=== PATIENT | female | born 1995 | race Two or more races ===

== ENCOUNTER 2024-01-06 06:06 | Emergency (ER) | payer MEDICAID, SELFPAY ==
[2024-01-06 06:19] VITALS: BP 140/98; PULSE 98; RESP 20; TEMP 36.7; O2SAT 96
--- NOTE | 2024-01-06 06:28 | EDNOTE_ITS ---
ED Allergic Reaction RME/HPI General Chief complaint: Allergic Reaction Stated complaint: Breaking out in hives-Generalized body Time Seen by Provider: 01/06/24 06:15 Arrival date/time: 01/06/24 06:06 28-year-old female presents emergency department today complains of itchy rash ongoing since she woke up this morning Limitations: no limitations Related Data Previous Rx's ?Medication ?Instructions ?Recorded ranitidine HCl 300 mg tablet 300 mg PO QDAY ##30 07/20/11 (Zantac) diphenhydramine HCl 25 mg capsule 25 mg PO Q8H PRN allergic symptoms 09/04/21 (Benadryl) #30 caps diphenhydramine HCl 25 mg capsule 25 mg PO Q8H PRN allergic symptoms 01/06/24 (Benadryl) #30 caps prednisone 10 mg tablet 30 mg (3 x 10 mg) PO BID 3 days 01/06/24 #18 tabs Allergies Allergy/AdvReac Type Severity Reaction Status Date / Time clindamycin Allergy Hives Verified 12/13/22 11:46 mupirocin Allergy Hives Verified 12/13/22 11:47 Review of Systems Review of Systems Systems Reviewed: All systems reviewed, normal except as documented Constitutional Constitutional: Reports system reviewed and no additional complaints, except as documented, Denies fever(s) and Denies headache(s) Eyes Eyes: Reports system reviewed and no additional complaints, except as documented and Denies blurry vision ENT Ears, Nose, Mouth, and Throat: Reports system reviewed and no additional complaints, except as documented, Denies headache(s), Denies nasal congestion and Denies nasal discharge Cardiovascular Cardiovascular: Reports system reviewed and no additional complaints, except as documented, Denies chest pain and Denies dyspnea Respiratory Respiratory: Reports system reviewed and no additional complaints, except as documented, Denies chest congestion, Denies cough and Denies dyspnea Gastrointestinal Gastrointestinal: Reports system reviewed and no additional complaints, except as documented and Denies abdominal pain Integumentary/Breasts Skin/Breast: Reports system reviewed and no additional complaints, except as documented, Reports pruritus and Reports rash Neurologic Neurologic: Reports system reviewed and no additional complaints, except as documented, Reports as per HPI and Denies headache(s) Past Medical History Past Medical History CARDIAC: Negative Congestive Heart Failure RESPIRATORY: Negative Chronic Obstructive Pulmonary Disease (COPD) GENITOURINARY: Negative Renal Disease ENDOCRINE: Negative Diabetes Mellitus Type 1 or Diabetes Mellitus Type 2 Surgical History SURGICAL: Positive Neurologic Surgery (craniectomy 2016) Social History SMOKING STATUS: Former smoker ED Exam General Limitations: Present no limitations General appearance: Present alert and in no apparent distress Head Head exam: Present atraumatic and normal inspection Eye Eye exam: Present normal appearance, PERRL and EOMI; Absent conjunctival injection ENT ENT exam: Present normal exam, normal oropharynx and mucous membranes moist Neck Neck exam: Present normal inspection, full ROM and trachea midline Chest Chest inspection: Present normal inspection and symmetric chest wall rise; Absent tenderness Respiratory Respiratory exam: Present normal lung sounds bilaterally; Absent respiratory distress Cardiovascular Cardiovascular exam: Present regular rate, normal rhythm and normal heart sounds Abdominal Exam Abdominal exam: Present soft and normal bowel sounds; Absent distention, tenderness, guarding or rebound Extremities Exam Extremities exam: Present normal inspection and full ROM Back Exam Back exam: Present normal inspection and full ROM Neurological Exam Neurological exam: Present alert, oriented X3 and CN II-XII intact Psychiatric Psychiatric exam: Present normal affect and normal mood Skin Skin exam: Present warm, dry and rash Course Quality Measures none Orders Category Date Time Status Dexamethasone Inj [Decadron Inj] Med 01/06/24 06:26 Discontinued 10 mg IM X1 ONE DiphenhydrAMINE [Benadryl] Med 01/06/24 06:26 Discontinued 50 mg PO X1 ONE Vital Signs Vital signs: Vital Signs Temperature 98.0 F 01/06/24 06:19 Pulse Rate 98 01/06/24 06:19 Respiratory Rate 20 01/06/24 06:19 Blood Pressure 140/98 H 01/06/24 06:19 Pulse Oximetry (%) 96 01/06/24 06:19 Oxygen Delivery Method Room Air 01/06/24 06:19 O2 saturation 96% room air within normal limits Allergic Reaction MDM Narrative MDM Narrative:: 28-year-old female presents emergency department today complains of itchy rash ongoing since she woke up this morning Patient reports no fever no nausea no vomiting no difficulty breathing no difficulty swallowing. Patient reports no chance of On exam patient appears well patient does not appear ill or toxic patient is no difficulty breathing no evidence of anaphylaxis patient does have rash Patient was given dexamethasone and Benadryl here patient discharged home with Benadryl and prednisone At the time of discharge patient no distress Patient data External records reviewed:: [facility] previous records Clinical information provided by:: patient Social determinants that could affect healthcare access:: none Patient has the following chronic illnesses:: None How is presenting disease/condition affected by chronic disease/condition?: no chronic disease Evaluation data The following diagnostics were reviewed and interpreted by me:: other (specify) (N/A) Lab and/or radiology exams considered but not ordered:: Consider not ordered Interpretation Summary: N/A Medications / Prescriptions Medications or Prescriptions considered but not ordered:: Given Medication administrations:: Medication Administration History Discontinued Medications Dexamethasone Sodium Phosphate (Dexamethasone Sod Phos Inj 10 Mg/Ml Vial) 10 mg IM X1 ONE Stop: 01/06/24 06:27 Diphenhydramine HCl (Diphenhydramine 25 Mg Capsule) 50 mg PO X1 ONE Stop: 01/06/24 06:27 Given Consultations Consultation(s) initiated? (list below): No Diagnosis Differential Diagnosis allergic reaction: anaphylaxis, allergic reaction, angioedema and contact dermatitis Most likely diagnosis given after review of the tests above:: Allergic reaction Admission Indicated Admission indicated?: not indicated Admission Request Was there a request for admission?: No Disposition Plan Disposition Plan: Discharge Discharge Attestation Discharge Attestation: The patient and all family members were given an opportunity to ask questions and understood the discharge instructions. Discharge instructions specifically effects, indications for sooner follow up or return to the emergency department, and the expected course of current diagnosis. Patient condition: Stable Discharge Plan Plan Patient Disposition: HOME (Self Care) Disposition Comment: Stable Prescriptions/Referrals Prescriptions/Med Rec: New prednisone 10 mg tablet 30 mg PO BID 3 Days Qty: 18 0RF diphenhydramine HCl [Benadryl] 25 mg capsule 25 mg PO Q8H PRN (Reason: allergic symptoms) Qty: 30 0RF No Action ranitidine HCl [Zantac] 300 MG tablet 300 mg PO QDAY Qty: 30 0RF diphenhydramine HCl [Benadryl] 25 mg capsule 25 mg PO Q8H PRN (Reason: allergic symptoms) Qty: 30 0RF Problem List Clinical Impression: Urticaria Patient/Caregiver Discharge Instructions Education Materials: ED Hives (Adult) Additional Instructions: Please follow up with your primary care doctor in the next 24-48hrs for any worsening symptoms return here immediately Print Language: Latvian Stand Alone Forms: [employer] Award Info., Work/School Release, Patient Portal Info Letter PA/SYSTEMS SUPPORT SPECIALIST Supervising Physician PA/SYSTEMS SUPPORT SPECIALIST Supervising Physician: Dr. mendoza
[2024-01-06] MEDS: DEXAMETHASONE SOD PHOS INJ 10 MG/ML VIAL IM (06:34)
[2024-01-06] MEDS: DiphenhydrAMINE 25 MG CAPSULE 50 MG PO (06:34)
== END 2024-01-06 06:53 | disposition home or self-care (01) ==
PROVIDERS: Emergency Provider Emergency Medicine; PCP Family Medicine
DX: L50.0 Allergic urticaria (principal)
CPT/HCPCS: 96372; 99283; J1100; A9270

== ENCOUNTER 2024-01-09 09:59 | Emergency (ER) | payer MEDICAID, SELFPAY ==
[2024-01-09 10:16] VITALS: BP 141/101; PULSE 88; RESP 18; TEMP 37; O2SAT 98; BMI 37.1
--- NOTE | 2024-01-09 10:39 | EDNOTE_ITS ---
ED Allergic Reaction RME/HPI General Chief complaint: Allergic Reaction Stated complaint: HIVES, ITCHING Time Seen by Provider: 01/09/24 10:10 Source: patient Arrival date/time: 01/09/24 09:59 28-year-old female history of allergic reactions presents to the emergency department with ongoing rash. States she was evaluated in the emergency department 3 days ago and was given steroids states she finished her steroids for 3 days and has noticed rash again to bilateral arms. Patient denies any airway involvement, throat closing or wheezing. She does report she wishes to have a steroid shot which has helped her in the past and she did not receive a on her last visit. Limitations: no limitations Related Data Previous Rx's ?Medication ?Instructions ?Recorded ranitidine HCl 300 mg tablet 300 mg PO QDAY ##30 07/20/11 (Zantac) diphenhydramine HCl 25 mg capsule 25 mg PO Q8H PRN allergic symptoms 09/04/21 (Benadryl) #30 caps diphenhydramine HCl 25 mg capsule 25 mg PO Q8H PRN allergic symptoms 01/06/24 (Benadryl) #30 caps Allergies Allergy/AdvReac Type Severity Reaction Status Date / Time clindamycin Allergy Hives Verified 12/13/22 11:46 [email or web address] Allergy Hives Verified 12/13/22 11:47 Review of Systems Review of Systems Systems Reviewed: All systems reviewed, normal except as documented Constitutional Constitutional: Reports system reviewed and no additional complaints, except as documented, Denies fever(s) and Denies headache(s) Eyes Eyes: Reports system reviewed and no additional complaints, except as documented and Denies blurry vision ENT Ears, Nose, Mouth, and Throat: Reports system reviewed and no additional complaints, except as documented, Denies headache(s), Denies nasal congestion and Denies nasal discharge Cardiovascular Cardiovascular: Reports system reviewed and no additional complaints, except as documented, Denies chest pain and Denies dyspnea Respiratory Respiratory: Reports system reviewed and no additional complaints, except as documented, Denies chest congestion, Denies cough and Denies dyspnea Gastrointestinal Gastrointestinal: Reports system reviewed and no additional complaints, except as documented and Denies abdominal pain Integumentary/Breasts Skin/Breast: Reports system reviewed and no additional complaints, except as documented, Reports pruritus and Reports rash Neurologic Neurologic: Reports system reviewed and no additional complaints, except as documented, Reports as per HPI and Denies headache(s) ED Exam General Limitations: Present no limitations General appearance: Present alert and in no apparent distress Head Head exam: Present atraumatic and normal inspection Eye Eye exam: Present normal appearance, PERRL and EOMI; Absent conjunctival injection ENT ENT exam: Present normal exam, normal oropharynx and mucous membranes moist Neck Neck exam: Present normal inspection, full ROM and trachea midline Chest Chest inspection: Present normal inspection and symmetric chest wall rise; Absent tenderness Respiratory Respiratory exam: Present normal lung sounds bilaterally; Absent respiratory distress Cardiovascular Cardiovascular exam: Present regular rate, normal rhythm and normal heart sounds Abdominal Exam Abdominal exam: Present soft and normal bowel sounds; Absent distention, tenderness, guarding or rebound Extremities Exam Extremities exam: Present normal inspection and full ROM Back Exam Back exam: Present normal inspection and full ROM Neurological Exam Neurological exam: Present alert, oriented X3 and CN II-XII intact Psychiatric Psychiatric exam: Present normal affect and normal mood Skin Skin exam: Present warm, dry and rash Course Quality Measures none Orders Category Date Time Status MethylPREDNISolone.* [SoluMEDROL Inj] Med 01/09/24 10:39 Discontinued 125 mg IM X1 ONE Vital Signs Vital signs: Vital Signs Temperature 98.6 F 01/09/24 10:16 Pulse Rate 88 01/09/24 10:16 Respiratory Rate 18 01/09/24 10:16 Blood Pressure 141/101 H 01/09/24 10:16 Pulse Oximetry (%) 98 01/09/24 10:16 Oxygen Delivery Method Room Air 01/09/24 10:16 Allergic Reaction MDM Narrative MDM Narrative:: 28-year-old female presents emergency department today complains of itchy rash ongoing since she woke up this morning Patient reports no fever no nausea no vomiting no difficulty breathing no difficulty swallowing. Patient reports no chance of On exam patient appears well patient does not appear ill or toxic patient is no difficulty breathing no evidence of anaphylaxis patient does have rash Patient was given Solu-Medrol shot 125 here patient discharged home with Benadryl, advised to buy [id number] Zyrtec Follow-up with PCP or manager casino At the time of discharge patient no distress Patient data External records reviewed:: [facility] previous records Clinical information provided by:: patient Social determinants that could affect healthcare access:: none Patient has the following chronic illnesses:: None How is presenting disease/condition affected by chronic disease/condition?: no chronic disease Evaluation data The following diagnostics were reviewed and interpreted by me:: other (specify) (N/A) Lab and/or radiology exams considered but not ordered:: Consider not ordered Interpretation Summary: N/A Medications / Prescriptions Medications or Prescriptions considered but not ordered:: Given Medication administrations:: Medication Administration History Discontinued Medications Methylprednisolone Sodium Succinate (Methylprednisolone Sod Succ 62.5 Mg/Ml 2ml Vial) 125 mg IM X1 ONE Stop: 01/09/24 10:40 Last Admin: 01/09/24 10:49 Dose: 125 mg Documented By: VG Given Consultations Consultation(s) initiated? (list below): No Diagnosis Differential Diagnosis allergic reaction: anaphylaxis, allergic reaction, angioedema and contact dermatitis Most likely diagnosis given after review of the tests above:: Allergic reaction Admission Indicated Admission indicated?: not indicated Admission Request Was there a request for admission?: No Disposition Plan Disposition Plan: Discharge Discharge Attestation Discharge Attestation: The patient and all family members were given an opportunity to ask questions and understood the discharge instructions. Discharge instructions specifically effects, indications for sooner follow up or return to the emergency department, and the expected course of current diagnosis. Patient condition: Stable Discharge Plan Plan Patient Disposition: HOME (Self Care) Patient condition on transfer: Stable Prescriptions/Referrals Prescriptions/Med Rec: No Action ranitidine HCl [Zantac] 300 MG tablet 300 mg PO QDAY Qty: 30 0RF diphenhydramine HCl [Benadryl] 25 mg capsule 25 mg PO Q8H PRN (Reason: allergic symptoms) Qty: 30 0RF diphenhydramine HCl [Benadryl] 25 mg capsule 25 mg PO Q8H PRN (Reason: allergic symptoms) Qty: 30 0RF Referrals: Dominik Haynes MD [Primary Care Provider] - In 1 week Problem List Clinical Impression: Allergic reaction Patient/Caregiver Discharge Instructions Discharge Activity: activity as tolerated Education Materials: ED Medicine Reaction: Allergic Additional Instructions: - Follow-up with your doctor or manager casino for follow-up care. Continue take your allergy medications Zantac and Benadryl as directed. Return to the emergency department with any worsening symptoms or change in condition. Print Language: Sinhala Stand Alone Forms: [employer] Award Info., Work/School Release, Patient Portal Info Letter JERRICA/TRADE MARK ATTORNEY Supervising Physician PA/TRADE MARK ATTORNEY Supervising Physician: Dr Salazar
[2024-01-09] MEDS: MethylPREDNISolone SOD SUCC 62.5 MG/ML 2ML VIAL 125 MG IM (10:49)
== END 2024-01-09 11:48 | disposition home or self-care (01) ==
PROVIDERS: Emergency Provider Emergency Medicine; PCP Family Medicine
DX: R21 Rash and other nonspecific skin eruption (principal)
CPT/HCPCS: 96372; 99283; J2919

== ENCOUNTER 2024-09-25 14:17 | Emergency (ER) | payer MEDICAID, SELFPAY ==
[2024-09-25 14:17] VITALS: BMI 32.3
--- NOTE | 2024-09-25 14:34 | XR_ITS ---
Examination: PA lateral chest 2 views TECHNIQUE: Upright PA lateral chest 2 views Date and time: September 25, 2024 1455 hours INDICATIONS: Patient fell 10 days ago with injury to the right chest, right rib pain. FINDINGS: Normal heart size No pneumothorax. Clavicles ribs appear intact on this chest film IMPRESSION: No pneumothorax pulmonary contusion or hemothorax No acute rib fractures noted
--- NOTE | 2024-09-25 14:36 | PD.EDRME ---
Rapid Medical Screening Exam [facility] Arrival date/time: 09/25/24 14:17 CC: The right sided chest pain shoulder pain upper back pain right upper quadrant abdominal pain HPI onset 10 days ago after jumping off a rock mario and belly flopping in the [facility] patient denies loss of consciousness altered level of consciousness ibuprofen taken regularly without significant relief at this point of time patient states pain has become unbearable and left work to be assessed. Patient is awake alert oriented last menstrual cycle was 1 week ago. Patient denies bloody urination painful urination low back pain lower abdominal pain altered mentation loss of consciousness or altered level of consciousness. Chief Complaint: Abdominal Pain Time Seen by Provider: 09/25/24 14:34
[2024-09-25 15:13] VITALS: BP 141/94; PULSE 90; RESP 18; TEMP 36.6; O2SAT 97
[2024-09-25 15:41] LABS: Collection Type, Urine Clean Catch
[2024-09-25 15:52] LABS: Basophils # (Auto) 0.1 Thou/mm3 (0.0-0.2); Basophils % (Auto) 1 % (0-2.5); Eosinophils # (Auto) 0.1 Thou/mm3 (0.0-0.5); Eosinophils % (Auto) 3 % (0-10); Hematocrit 36.9 % (36.0-46.0); Hemoglobin 12.6 g/dL (12.0-16.0); Immature Granulocytes Auto 0.01 Thou/mm3 (0.00-0.00); Lymphocytes # (Auto) 1.5 Thou/mm3 (1.0-4.8); Lymphocytes % (Auto) 34 % (10-50); Mean Corpuscular HGB Conc 34.1 g/dl (31.0-37.0); Mean Corpuscular Hemoglobin 32.8 pg (25.0-35.0); Mean Corpuscular Volume 96 fL (80-100); Monocytes # (Auto) 0.3 Thou/mm3 (0.0-0.8); Monocytes % (Auto) 7 % (0-12); Neutrophils # (Auto) 2.4 Thou/mm3 (1.8-7.7); Neutrophils % (Auto) 56 % (37-80); Nucleated Red Blood Cell # 0.00 Thou/mm3 (0.00-0.00); Nucleated Red Blood Cell % 0 /100 WBC (0); Platelet Count 223 Thou/mm3 (140-440); RDW Standard Deviation 53.1 fL (36.4-46.3); Red Blood Count 3.84 Miln/mm3 (4.00-5.20); White Blood Count 4.4 Thou/mm3 (3.6-11.0)
[2024-09-25 16:05] LABS: HCG Qualitative,Urine Negative
--- NOTE | 2024-09-25 16:08 | EDNOTE_ITS ---
ED General RME/HPI General Chief complaint: Abdominal Pain Stated complaint: RIGHT FLANK PAIN Time Seen by Provider: 09/25/24 14:34 Arrival date/time: 09/25/24 14:17 CR me below RME / HPI RME / HPI narrative: 09/25/24 14:17 CC: The right sided chest pain shoulder pain upper back pain right upper quadrant abdominal pain HPI onset 10 days ago after jumping off a rock mario and belly flopping in the [facility] patient denies loss of consciousness altered level of consciousness ibuprofen taken regularly without significant relief at this point of time patient states pain has become unbearable and left work to be assessed. Patient is awake alert oriented last menstrual cycle was 1 week ago. Patient denies bloody urination painful urination low back pain lower abdominal pain altered mentation loss of consciousness or altered level of consciousness. Related Data Previous Rx's ?Medication ?Instructions ?Recorded ranitidine HCl 300 mg tablet 300 mg PO QDAY ##30 07/19 (Zantac) diphenhydramine HCl 25 mg capsule 25 mg PO Q8H PRN all ergic symptoms 09/04/21 (Benadryl) #30 caps diphenhydramine HCl 25 mg capsule 25 mg PO Q8H PRN all ergic symptoms 01/06/24 (Benadryl) #30 caps meloxicam 7.5 mg tablet 7.5 mg PO BID #10 tabs 09/25 Allergies Allergy/AdvReac Type Severity Reaction Status Date / Time clindamycin Allergy Hives Verified 09/25/24 14:21 mupirocin Allergy Hives Verified 09/25/24 14:21 Past Medical History Past Medical History CARDIAC: Negative Congestive Heart Failure RESPIRATORY: Negative Chronic Obstructive Pulmonary Disease (COPD) GENITOURINARY: Negative Renal Disease ENDOCRINE: Negative Diabetes Mellitus Type 1 or Diabetes Mellitus Type 2 Surgical History SURGICAL: Positive Neurologic Surgery (craniectomy 2016) Social History SMOKING STATUS: Current every day smoker ED Exam Narrative Physical exam: [General: Obese not in cot no acute distress Head normocephalic HEENT: Within acceptable limits Neck is supple nontender Chest equal chest rise right-sided tenderness to palpation, breath sounds in all reyes. Respiratory: Clear to auscultation no wheezes crackles or rubs CV: Rate rhythm is regular no murmurs rubs or clicks Abdomen is distended secondary to body habitus soft nontender no masses positive bowel sounds all 4 quadrants Back: No CVA tenderness no spinous process tenderness from cervical spine thoracic and lumbar spine Skin: Intact no petechiae rash induration ulceration or crepitus Extremities: Moving all extremity against resistance cap refill less than 2 seconds neurosensory intact Neuro: Awake alert oriented x3 Glascow coma 15 no focal deficits] Course Quality Measures none Orders Category Date Time Status XR chest 2V Stat Exams 09/25/24 14:34 Completed CBC Stat Lab 09/25/24 15:21 Completed CMP [Comprehensive Metabolic Panel] Stat Lab 09/25/24 15:21 Received HCG Qualitative,Urine Stat Lab 09/25/24 15:33 Results Urinalysis Stat Lab 09/25/24 15:33 Results oxyCODONE/APAP 5/325 [Percocet 5/325] Med 09/25/24 14:34 Discontinued 1 tab PO X1 ONE Vital Signs Vital signs: Vital Signs Temperature 97.8 F 09/25/24 15:13 Pulse Rate 90 09/25/24 15:13 Respiratory Rate 18 09/25/24 15:13 Blood Pressure 141/94 H 09/25/24 15:13 Pulse Oximetry (%) 97 09/25/24 15:13 Oxygen Delivery Method Room Air 09/25/24 15:13 Discharge Plan Plan Patient Disposition: HOME (Self Care) Patient condition on transfer: Stable Prescriptions/Referrals Prescriptions/Med Rec: New meloxicam 7.5 mg tablet 7.5 mg PO BID Qty: 10 0RF No Action ranitidine HCl [Zantac] 300 MG tablet 300 mg PO QDAY Qty: 30 0RF diphenhydramine HCl [Benadryl] 25 mg capsule 25 mg PO Q8H PRN (Reason: allergic symptoms) Qty: 30 0RF diphenhydramine HCl [Benadryl] 25 mg capsule 25 mg PO Q8H PRN (Reason: allergic symptoms) Qty: 30 0RF Referrals: No Primary/Family,Physician [Primary Care Provider] - In 1 week Dominik Haynes MD [Physician] - In 1 week Problem List Clinical Impression: Chest wall contusion Patient/Caregiver Discharge Instructions Education Materials: ED Chest Wall Contusion Print Language: Hungarian Stand Alone Forms: [employer] Award Info., Patient Portal Info Letter, Work/School Release PA/[employer] Supervising Physician ROGER Supervising Physician: Robert Rashid ENEstephanie MDM Meds/Rx Considered, not Ordered None Labs/Rad/Tests considered, not Ordered Describe details: CBC shows no leukocytosis anemia thrombocytopenia Urine is negative Imaging Provider imaging interpretation(s): Chest x-ray is negative for any pneumothorax rib fracture or significant altered the patient that requires emergent intervention as interpreted by me read by radiology. Medication Administration(s) Medication Administration History Discontinued Medications Oxycodone/Acetaminophen (Oxycodone/Apap 5/325 Tablet) 1 tab PO X1 ONE Stop: 09/25/24 14:35 Last Admin: 09/25/24 14:40 Dose: 1 tab Documented By: ABBY
[2024-09-25 16:12] LABS: Bilirubin,Urine Negative (Negative); Blood,Urine Negative (Negative); Clarity,Urine Clear (Clear/Hazy); Color,Urine Colorless (Lt Yel-Yel); Glucose, Urine Negative (Negative); Ketones,Urine Negative (Negative); Leukocyte Esterase,Urine Negative (Negative); Nitrite,Urine Negative (Negative); PH,Urine 6.5 (5.0-7.0); Protein,Urine Negative (Neg - Trace); RBC,Urine 2 /hpf (0-3); Specific Gravity,Urine 1.008 (1.001-1.035); Squamous Epithelial Cell,Urine 1 /hpf (0-5); Urobilinogen,Urine Negative mg/dL (0.0-1.0); WBC,Urine < 1 /hpf (0-5)
[2024-09-25 16:56] LABS: Alanine Aminotransferase 16 U/L (10-49); Albumin, Serum 4.5 gm/dL (3.5-5.0); Albumin/Globulin Ratio 1.7 (1.2-2.2); Alkaline Phosphatase 89 U/L (46-116); Anion Gap 13 (7-16); Aspartate Amino Transferase 37 U/L (0-34); BUN/Creatinine Ratio 11 Ratio (12-20); Bilirubin,Total 0.5 mg/dL (0.3-1.2); Blood Urea Nitrogen 8 mg/dL (9-23); Calcium 9.1 mg/dL (8.3-10.6); Calcium (Corrected) 9.1 mg/dL (8.5-10.1); Carbon Dioxide 21.6 mMol/L (20.0-31.0); Chloride 105 mMol/L (98-107); Creatinine (Component) 0.7 mg/dL (0.6-1.3); Estimated Creatinine Clearance 133.3 mL/min (>60); Globulin 2.7 gm/dL (2.3-3.5); Glucose 92 mg/dL (74-106); Osmolality,Calculated 277 (275-295); Potassium 3.8 mMol/L (3.4-5.1); Sodium 140 mMol/L (136-145); Total Protein 7.2 gm/dL (5.7-8.2); eGFR > 60 See Note
== END 2024-09-25 16:15 | disposition home or self-care (01) ==
PROVIDERS: Registered Nurse General Practice; Emergency Provider Family Medicine
DX: S20.219A Contusion of unspecified front wall of thorax, initial encounter (principal); W16.612A Jumping or diving into natural body of water striking water surface causing other injury, initial encounter; Y93.39 Activity, other involving climbing, rappelling and jumping off; Y92.828 Other wilderness area as the place of occurrence of the external cause
CPT/HCPCS: 36415; 71046; 80053; 81001; 81025; 85025; 99283; A9270

== ENCOUNTER 2024-12-16 00:33 | Emergency (ER) | payer MEDICAID, SELFPAY ==
[2024-12-16 00:34] VITALS: BMI 30.7
[2024-12-16 00:45] VITALS: BP 136/86; PULSE 93; RESP 18; TEMP 36.4; O2SAT 96
--- NOTE | 2024-12-16 00:48 | PD.EDANIML ---
ED Animal Bite RME/HPI General Chief Complaint: Animal Bite Stated Complaint: BIT BY CAT ON RIGHT HAND Time Seen by Provider: 12/16/24 00:48 Arrival date/time: 12/16/24 00:33 29F with no significant PMH presents to ED with cat bite from stray cat on R hand. Patient rinsed hand prior to arrival with peroxide. Patient has not had a tetanus shot in the past 5 years. Limitations: no limitations Related Data Previous Rx's ?Medication ?Instructions ?Recorded ranitidine HCl 300 mg tablet 300 mg PO QDAY ##30 07/20/11 (Zantac) diphenhydramine HCl 25 mg capsule 25 mg PO Q8H PRN allergic symptoms 09/04/21 (Benadryl) #30 caps diphenhydramine HCl 25 mg capsule 25 mg PO Q8H PRN allergic symptoms 01/06/24 (Benadryl) #30 caps meloxicam 7.5 mg tablet 7.5 mg PO BID #10 tabs 09/25/24 amoxicillin 875 mg-potassium 1 tab PO BID 7 days #14 tabs 12/16/24 clavulanate 125 mg tablet Allergies Allergy/AdvReac Type Severity Reaction Status Date / Time clindamycin Allergy Hives Verified 09/25/24 14:21 mupirocin Allergy Hives Verified 09/25/24 14:21 Review of Systems Review of Systems Systems Reviewed: All systems reviewed, normal except as documented Integumentary/Breasts Skin/Breast: Reports as per HPI and Reports skin pain Past Medical History Past Medical History CARDIAC: Negative Congestive Heart Failure RESPIRATORY: Negative Chronic Obstructive Pulmonary Disease (COPD) GENITOURINARY: Negative Renal Disease ENDOCRINE: Negative Diabetes Mellitus Type 1 or Diabetes Mellitus Type 2 Surgical History SURGICAL: Positive Neurologic Surgery (craniectomy 2016) Social History SMOKING STATUS: Current every day smoker ED Exam General Limitations: Present no limitations General appearance: Present alert and in no apparent distress Head Head exam: Present atraumatic Neck Neck exam: Present normal inspection, full ROM and trachea midline Chest Chest inspection: Present normal inspection and symmetric chest wall rise Extremities Exam Extremities exam: Present full ROM Expanded Upper Extremity Exam Hand exam: Present full ROM and laceration (multiple puncture wounds on R ) Neurological Exam Neurological exam: Present alert, oriented X3 and CN II-XII intact Psychiatric Psychiatric exam: Present normal affect and normal mood Skin Skin exam: Present warm, dry, intact and normal color Course Quality Measures none Orders Category Date Time Status Wound Care X1 Care 12/16/24 00:57 Active Amoxicillin/Pot Clav 875 [Augmentin 875] Med 12/16/24 00:56 Once 1 tab PO X1 ONE TET,DIP/PERT AC (Adult)-Tdap [Boostrix Adult (Tdap) Med 12/16/24 00:56 Once Vacc] 0.5 ml IMI .ONCE ONE Vital Signs Vital signs: Vital Signs Temperature 97.5 F 12/16/24 00:45 Pulse Rate 93 12/16/24 00:45 Respiratory Rate 18 12/16/24 00:45 Blood Pressure 136/86 H 12/16/24 00:45 Pulse Oximetry (%) 96 12/16/24 00:45 Oxygen Delivery Method Room Air 12/16/24 00:45 O2 at 96% on RA and WNLs Animal Bite MDM Narrative MDM Narrative:: 29F with no significant PMH presents to ED with cat bite from stray cat on R hand. Patient rinsed hand prior to arrival with peroxide. Patient has not had a tetanus shot in the past 5 years. Physical exam reveals multiple puncture wounds on R hand. Patient is afebrile, calm, and alert. Wound cleaned. Tdap and ABX prophylaxis given. Patient declines rabies vaccination series. Patient data [facility] records reviewed:: [facility] records Clinical information provided by:: patient Social determinants that could affect healthcare access:: none Patient has the following chronic illnesses:: none How is presenting disease/condition affected by chronic disease/condition?: no chronic disease Evaluation data The following diagnostics were reviewed and interpreted by me:: other (specify) (none) Lab and/or radiology exams considered but not ordered:: not ordered Interpretation Summary: n/a Medications / Prescriptions Medications or Prescriptions considered but not ordered:: ordered Medication administrations:: Medication Administration History Amoxicillin/Clavulanate Potassium (Amoxicillin/Pot Clav 875 Tablet) 1 tab PO X1 ONE Stop: 12/16/24 00:57 Diphtheria/Tetanus/Acell Pertussis (Diphth,Pertuss(Acell),Tet Vac 0.5 Ml Syr- Adult) 0.5 ml IMi .ONCE ONE Stop: 12/16/24 00:57 above Consultations Consultation(s) initiated? (list below): No Diagnosis Differential diagnosis animal bite: bite by animal, cat bite, dog bite and rabies contact Most likely diagnosis given after review of the tests above:: cat bite Admission Indicated Admission indicated?: not indicated Admission Request Was there a request for admission?: No Disposition Plan Disposition Plan: Discharge Discharge Attestation Discharge Attestation: The patient and all family members were given an opportunity to ask questions and understood the discharge instructions. Discharge instructions specifically effects, indications for sooner follow up or return to the emergency department, and the expected course of current diagnosis. Patient condition: Stable Discharge Plan Plan Patient Disposition: HOME (Self Care) Discharge Disposition comment: Stable Prescriptions/Referrals Prescriptions/Med Rec: New amoxicillin-pot clavulanate 875-125 mg tablet 1 tab PO BID 7 Days Qty: 14 0RF No Action ranitidine HCl [Zantac] 300 MG tablet 300 mg PO QDAY Qty: 30 0RF diphenhydramine HCl [Benadryl] 25 mg capsule 25 mg PO Q8H PRN (Reason: allergic symptoms) Qty: 30 0RF diphenhydramine HCl [Benadryl] 25 mg capsule 25 mg PO Q8H PRN (Reason: allergic symptoms) Qty: 30 0RF meloxicam 7.5 mg tablet 7.5 mg PO BID Qty: 10 0RF Problem List Clinical Impression: Cat bite Patient/Caregiver Discharge Instructions Education Materials: ED Cat Bite Additional Instructions: Please follow-up with PCP within 24-48 hours and return immediately if symptoms worsen. Print Language: [place] Citizen Stand Alone Forms: Patient Portal Info Letter JERRICA/MARION Supervising Physician JERRICA/MARION Supervising Physician: Dr. Poole
[2024-12-16] MEDS: DIPHTH,PERTUSS(ACELL),TET VAC 0.5 ML SYR- ADULT IMi (01:14)
[2024-12-16] MEDS: AMOXICILLIN/POT CLAV 875 TABLET 1 TAB PO (01:14)
== END 2024-12-16 01:30 | disposition home or self-care (01) ==
LOC: SERX 01:37
PROVIDERS: Emergency Provider Emergency Medicine
DX: S61.451A Open bite of right hand, initial encounter (principal); W55.01XA Bitten by cat, initial encounter; Z23 Encounter for immunization
CPT/HCPCS: 90471; 90715; 99283; A9270